=== PATIENT | female | born 1970 | race Caucasian/White ===

== ENCOUNTER 2023-06-26 22:14 | Inpatient (IN) | payer SELFPAY ==
[~2023-06-26] VITALS: Ht 149.9 cm; Wt 49.0 kg
[2023-06-26] MEDS: SODIUM CHLORIDE 0.9% 1,000 ML IV ONE (23:11)
[2023-06-26 23:21] LABS: BASOPHILS % 0.2 % (0.0-2.0); EOSINOPHILS % 0.5 % (0.0-5.0); HEMATOCRIT. 41.4 % (36.0-48.0); HEMOGLOBIN. 13.8 g/dL (12.0-16.0); LYMPHOCYTES % 8.5 % (20.0-50.0); MEAN CORPUSCULAR HEMOGLOBIN 30.1 pg (28.0-32.0); MEAN CORPUSCULAR HGB CONC 33.3 g/dL (31.0-37.0); MEAN CORPUSCULAR VOLUME 90.5 fL (81.0-99.0); MEAN PLATELET VOLUME 7.2 fl (7.4-10.4); MONOCYTES % 5.7 % (2.0-8.0); NEUTROPHILS % 85.1 % (40.0-76.0); PLATELET 212 x1000/uL (130-400); RED BLOOD CELL COUNT 4.58 mill/uL (4.2-5.4); RED CELL DISTRIBUTION WIDTH 12.9 % (11.6-14.6); WHITE BLOOD COUNT 21.9 x1000/uL (4.5-11.0)
[2023-06-26 23:41] LABS: ALANINE AMINOTRANSFERASE 60 IU/L (10-49); ALBUMIN 4.7 g/dL (3.2-4.8); ASPARTATE AMINOTRANSFERASE 91 IU/L (<34); BILIRUBIN TOTAL 0.5 mg/dL (0.1-1.0); CARBON DIOXIDE 24 mEq/L (21-32); CHLORIDE 109 mEq/L (98-107); CREATININE 0.9 mg/dL (0.6-1.0); GLUCOSE 118 mg/dL (70-105); POTASSIUM 3.2 mEq/L (3.5-5.1); PROTEIN TOTAL 7.9 g/dL (6.0-8.3); SODIUM 142 mEq/L (136-145); UREA NITROGEN BLOOD 20 mg/dL (9-23)
[2023-06-26] MEDS: TETANUS, DIPHTHERIA, PERTUSSIS VAC/PF 0.5ML (>10YR OLD) IM ONE (23:45)
[2023-06-26] MEDS: ACETAMINOPHEN 325MG TABLET PO ONE (23:45)
[2023-06-26 23:49] LABS: ETHANOL BLOOD < 10 mg/dL (<10)
[2023-06-26 23:50] LABS: TROPONIN I HIGH SENSITIVITY 485 ng/L (3.0-34)
[2023-06-27] MEDS: LIDOCAINE HCL/PF 1% 10 MG/ML 5ML VIAL INFIL ONE ×2 (00:40→00:47)
[2023-06-27] MEDS: BACITRACIN ZINC OINT UDPKT TOP ONE (00:40)
[2023-06-27] MEDS ORDERED: ACETAMINOPHEN 325MG TABLET PO PRN (01:45)
[2023-06-27] MEDS ORDERED: DOCUSATE SODIUM 100MG CAPSULE PO PRN (01:45)
[2023-06-27] MEDS ORDERED: MAGNESIUM/ALUMINUM HYDROXIDE/SIMETHICONE 30ML UDC PO PRN (01:45)
[2023-06-27] MEDS ORDERED: GUAIFENESIN 200MG/10ML SUGAR FREE UDC PO PRN (01:45)
[2023-06-27] MEDS ORDERED: ONDANSETRON HCL 4MG/2ML INJ IV PRN (01:45)
[2023-06-27] MEDS ORDERED: KETOROLAC 15MG/ML VIAL IV PRN (01:45)
[2023-06-27] MEDS ORDERED: CLONIDINE 0.1MG TABLET PO PRN (01:45)
[2023-06-27] MEDS ORDERED: IPRATROPIUM/ALBUTEROL 0.5-3(2.5)MG/3ML NEB HHN PRN (01:45)
[2023-06-27] MEDS: ENOXAPARIN 80MG/0.8ML SYR SUBCUT NR (02:17)
[2023-06-27] MEDS: ASPIRIN 325MG EC TABLET PO NR (02:17)
[2023-06-27] MEDS: FAMOTIDINE 20MG/2ML VIAL IV NR (02:45)
[2023-06-27] MEDS: DEXT 5%/0.9% NACL 1,000 ML IV ONE (02:46)
[2023-06-27] MEDS: POTASSIUM CHLORIDE 20MEQ TABLET SR PO NR (02:46)
[2023-06-27 03:29] LABS: TROPONIN I HIGH SENSITIVITY 5120 ng/L (3.0-34)
[2023-06-27 05:15] VITALS: BP 119/75; PULSE 107; RESP 20; TEMP 97.8
[2023-06-27 07:33] LABS: CREATINE KINASE MB FRACTION 18.4 ng/mL (0.5-3.6)
[2023-06-27 07:48] VITALS: BP 120/82; PULSE 101; RESP 18; TEMP 98.6
[2023-06-27 08:02] LABS: CLARITY URINE CLEAR (CLEAR); COLOR URINE YELLOW (YELLOW); GLUCOSE URINE TRACE (NEGATIVE); KETONES URINE NEGATIVE (NEGATIVE); LEUKOCYTE ESTERASE URINE NEGATIVE (NEGATIVE); NITRITE URINE NEGATIVE (NEGATIVE); OCCULT BLOOD URINE NEGATIVE (NEGATIVE); PH URINE 5.5 (4.5-8.0); PROTEIN URINE 1+ (NEGATIVE); SPECIFIC GRAVITY URINE 1.023 (1.005-1.030); UROBILINOGEN URINE 0.2 E.U./dL (0.2-1.0)
[2023-06-27 08:20] LABS: *AMPHETAMINES SCREEN URINE NEGATIVE (NEGATIVE); *BARBITURATES SCREEN URINE NEGATIVE (NEGATIVE); *BENZODIAZEPINES SCREEN URINE NEGATIVE (NEGATIVE); *COCAINE SCREEN URINE NEGATIVE (NEGATIVE); CANNABINOID URINE SCREEN NEGATIVE (NEGATIVE); ECSTASY MDMA SCREEN URINE NEGATIVE (NEGATIVE); METHADONE URINE SCREEN Neg (NEGATIVE); OPIATES URINE SCREEN NEGATIVE (NEGATIVE); PHENCYCLIDINE URINE SCREEN NEGATIVE (NEGATIVE)
[2023-06-27 08:35] LABS: D-DIMER 19.11 mg/L FEU (<0.50); PROTHROMBIN TIME 11.4 sec (9.6-11.0)
[2023-06-27 09:07] LABS: SQUAMOUS EPITHELIAL CELL URINE 1+ /lpf (RARE/1+)
[2023-06-27 09:08] LABS: BACTERIA URINE TRACE
[2023-06-27 09:09] LABS: RBC URINE NONE SEEN /hpf (0-2); WBC URINE 0-2 /hpf (0-2)
[2023-06-27] MEDS: ENOXAPARIN 60MG/0.6ML SYR SUBCUT SCH (09:40)
[2023-06-27] MEDS ORDERED: IOHEXOL-350 100 ML BOTTLE ONE (10:42)
[2023-06-27] MEDS: ACETAMINOPHEN 325MG TABLET PO PRN (10:57)
[2023-06-27 11:39] VITALS: BP 106/85; PULSE 94; RESP 18; TEMP 98.4
[2023-06-27 16:29] VITALS: BP 115/85; PULSE 95; RESP 20; TEMP 98.6
[2023-06-27 18:36] LABS: CREATINE KINASE MB FRACTION 13.1 ng/mL (0.5-3.6)
[2023-06-27 20:00] VITALS: BP_SYST 106; BP_SYST 98; BP_DIAS 73; PULSE 97; RESP 18; TEMP 97.6
[2023-06-27 20:40] LABS: CREATINE KINASE MB FRACTION 11.3 ng/mL (0.5-3.6)
[2023-06-28] VITALS (28 sets, daily range): BP systolic 87–137; BP diastolic 57–89; PULSE 75–101; RESP 12–30; TEMP 98.2–99.2
[2023-06-28 06:58] LABS: BASOPHILS % 0.4 % (0.0-2.0); EOSINOPHILS % 1.1 % (0.0-5.0); HEMATOCRIT. 37.5 % (36.0-48.0); HEMOGLOBIN. 12.5 g/dL (12.0-16.0); LYMPHOCYTES % 18.4 % (20.0-50.0); MEAN CORPUSCULAR HEMOGLOBIN 29.7 pg (28.0-32.0); MEAN CORPUSCULAR HGB CONC 33.2 g/dL (31.0-37.0); MEAN CORPUSCULAR VOLUME 89.2 fL (81.0-99.0); MEAN PLATELET VOLUME 7.8 fl (7.4-10.4); MONOCYTES % 7.6 % (2.0-8.0); NEUTROPHILS % 72.5 % (40.0-76.0); PLATELET 181 x1000/uL (130-400); RED CELL DISTRIBUTION WIDTH 12.8 % (11.6-14.6); WHITE BLOOD COUNT 12.6 x1000/uL (4.5-11.0)
[2023-06-28 07:29] LABS: ALANINE AMINOTRANSFERASE 46 IU/L (10-49); ALBUMIN 4.1 g/dL (3.2-4.8); ASPARTATE AMINOTRANSFERASE 42 IU/L (<34); BILIRUBIN TOTAL 0.9 mg/dL (0.1-1.0); CALCIUM 8.8 mg/dL (8.7-10.4); CARBON DIOXIDE 25 mEq/L (21-32); CHLORIDE 106 mEq/L (98-107); CHOLESTEROL 203 mg/dL (<200); CREATININE 0.6 mg/dL (0.6-1.0); GLUCOSE 98 mg/dL (70-105); HDL CHOLESTEROL 59 mg/dL (>65); LDL CHOLESTEROL 124 mg/dL (5-100); PHOSPHORUS 2.6 mg/dL (2.5-4.9); POTASSIUM 3.8 mEq/L (3.5-5.1); SODIUM 139 mEq/L (136-145); THYROID STIMULATING HORMONE 0.82 uIU/mL (0.55-4.78); TRIGLYCERIDE 148 mg/dL (0-150); UREA NITROGEN BLOOD 8 mg/dL (9-23)
[2023-06-28] MEDS ORDERED: IODIXANOL 320MG/ML 100 ML BOTTLE IV ONE (14:45)
[2023-06-28] MEDS ORDERED: FENTANYL CITRATE/PF 50MCG/ML 2ML VIAL ONE (14:46)
[2023-06-28] MEDS ORDERED: LIDOCAINE HCL 1% 20ML VIAL (Pyxis) INJ ONE (14:46)
[2023-06-28] MEDS ORDERED: MIDAZOLAM HCL 2 MG/2 ML VIAL ONE ×2 (14:46→17:34)
[2023-06-28] MEDS ORDERED: HEPARIN 1000 UNITS/ML 10ML ONE (14:46)
[2023-06-28] MEDS ORDERED: PROTAMINE SULFATE 10MG/ML VIAL 25ML IV ONE (16:16)
[2023-06-28] MEDS ORDERED: MIDAZOLAM HCL 5 MG/5 ML VIAL ONE (16:16)
[2023-06-28] MEDS ORDERED: PROPOFOL 10MG/ML 100ML 100 ML IV ONE (16:32)
[2023-06-28 17:35] LABS: HEMATOCRIT 34.5 % (36.0-48.0); HEMOGLOBIN 11.3 g/dL (12.0-16.0)
[2023-06-28] MEDS: FENTANYL 2500MCG/250ML PMX 250 ML IV ONE (18:55)
[2023-06-28] MEDS: PROPOFOL 10MG/ML 100ML 100 ML IV PRN (19:02)
[2023-06-28 19:34] LABS: BG BASE EXCESS -0.5 mmol/L (-2.0-2.0); BG CARBOXYHEMOGLOBIN 0.3 % (0.5-1.5); BG DEOXYHEMOGLOBIN 0.8 % (0.0-5.0); BG FRACTION INSPIRED OXYGEN 100; BG METHEMOGLOBIN 0.4 % (0.0-1.5); BG OXYGEN SATURATION 99.2 % (92.0-98.5); BG OXYHEMOGLOBIN 98.5 % (94.0-97.0); BG PCO2 38.8 mmHg (35.0-45.0); BG PH 7.409 (7.350-7.450); BG PO2 276.5 mmHg (75.0-100.0); BG SAMPLE SITE ALINE; BG TOTAL HEMOGLOBIN 12.3 g/dL (12.0-18.0); BG VENT MODE VENT - AC
[2023-06-28] MEDS: ATORVASTATIN CALCIUM 40MG TABLET PO SCH (20:02)
[2023-06-28 23:57] LABS: HEMOGLOBIN 13.1 g/dL (12.0-16.0); MEAN CORPUSCULAR HEMOGLOBIN 30.2 pg (28.0-32.0); MEAN CORPUSCULAR HGB CONC 32.7 g/dL (31.0-37.0); MEAN CORPUSCULAR VOLUME 92.3 fL (81.0-99.0); PLATELET 167 x1000/uL (130-400); RED BLOOD CELL COUNT 4.33 mill/uL (4.2-5.4); RED CELL DISTRIBUTION WIDTH 13.2 % (11.6-14.6); WHITE BLOOD COUNT 16.9 x1000/uL (4.5-11.0)
[2023-06-29] VITALS (91 sets, daily range): BP systolic 83–132; BP diastolic 43–84; PULSE 80–106; RESP 13–24; TEMP 98–99.5
[2023-06-29 04:32] LABS: BASOPHILS % 0.5 % (0.0-2.0); EOSINOPHILS % 3.2 % (0.0-5.0); HEMATOCRIT. 35.9 % (36.0-48.0); HEMOGLOBIN. 12.1 g/dL (12.0-16.0); LYMPHOCYTES % 18.9 % (20.0-50.0); MEAN CORPUSCULAR HEMOGLOBIN 30.7 pg (28.0-32.0); MEAN CORPUSCULAR HGB CONC 33.7 g/dL (31.0-37.0); MEAN PLATELET VOLUME 8.1 fl (7.4-10.4); MONOCYTES % 8.9 % (2.0-8.0); NEUTROPHILS % 68.5 % (40.0-76.0); PLATELET 149 x1000/uL (130-400); RED BLOOD CELL COUNT 3.94 mill/uL (4.2-5.4); RED CELL DISTRIBUTION WIDTH 12.8 % (11.6-14.6); WHITE BLOOD COUNT 14.8 x1000/uL (4.5-11.0)
[2023-06-29 04:45] LABS: CALCIUM 7.9 mg/dL (8.7-10.4); CARBON DIOXIDE 26 mEq/L (21-32); CHLORIDE 107 mEq/L (98-107); CREATININE 0.7 mg/dL (0.6-1.0); GLUCOSE 118 mg/dL (70-105); PHOSPHORUS 3.3 mg/dL (2.5-4.9); POTASSIUM 3.4 mEq/L (3.5-5.1); SODIUM 140 mEq/L (136-145); TRIGLYCERIDE 157 mg/dL (0-150); UREA NITROGEN BLOOD 12 mg/dL (9-23)
[2023-06-29] MEDS: NOREPINEPHRINE 8MG/250ML PMX 250 ML IV PRN (07:06)
[2023-06-29] MEDS: MAGNESIUM 2 G PREMIX 50 ML IV NR (09:32)
[2023-06-29] MEDS ORDERED: RACEPINEPHRINE 2.25% 0.5ML NEB VIAL HHN SCH (10:30)
[2023-06-29] MEDS ORDERED: RACEPINEPHRINE 2.25% 0.5ML NEB VIAL HHN PRN (10:30)
[2023-06-29] MEDS: KCL 20MEQ/100ML PREMIX 100 ML IV NR (10:39)
[2023-06-29] MEDS: SODIUM BICARBONATE 150 MEQ in DEXTROSE 5% WATER 1,000 ML IV PRN (11:05)
[2023-06-29 14:48] LABS: BG BASE EXCESS 0.8 mmol/L (-2.0-2.0); BG CARBOXYHEMOGLOBIN 0.2 % (0.5-1.5); BG DEOXYHEMOGLOBIN 2.6 % (0.0-5.0); BG FRACTION INSPIRED OXYGEN 40; BG HCO3 ACT 25.4 mmol/L (22.0-26.0); BG METHEMOGLOBIN 0.3 % (0.0-1.5); BG OXYGEN SATURATION 97.4 % (92.0-98.5); BG OXYHEMOGLOBIN 96.9 % (94.0-97.0); BG PCO2 40.3 mmHg (35.0-45.0); BG PH 7.417 (7.350-7.450); BG PO2 93.7 mmHg (75.0-100.0); BG SAMPLE SITE RIGHT RADIAL; BG TOTAL HEMOGLOBIN 12.7 g/dL (12.0-18.0); BG VENT MODE VENT - CPAP
[2023-06-29] MEDS: SODIUM BICARBONATE 150 MEQ in DEXTROSE 5% WATER 1,000 ML IV SCH (14:51)
[2023-06-29] MEDS: DEXT 5%/0.45% NACL 1000ML 1,000 ML IV SCH (22:02)
[2023-06-30] VITALS (80 sets, daily range): BP systolic 78–121; BP diastolic 66–87; PULSE 76–95; RESP 14–28; TEMP 97.8–98.6
[2023-06-30 00:04] LABS: HEMATOCRIT 33.8 % (36.0-48.0); HEMOGLOBIN 11.4 g/dL (12.0-16.0); MEAN CORPUSCULAR HEMOGLOBIN 30.8 pg (28.0-32.0); MEAN CORPUSCULAR HGB CONC 33.6 g/dL (31.0-37.0); MEAN CORPUSCULAR VOLUME 91.6 fL (81.0-99.0); PLATELET 149 x1000/uL (130-400); RED BLOOD CELL COUNT 3.69 mill/uL (4.2-5.4); WHITE BLOOD COUNT 13.7 x1000/uL (4.5-11.0)
[2023-06-30 05:14] LABS: BASOPHILS % 0.3 % (0.0-2.0); EOSINOPHILS % 4.7 % (0.0-5.0); HEMOGLOBIN. 11.5 g/dL (12.0-16.0); LYMPHOCYTES % 15.2 % (20.0-50.0); MEAN CORPUSCULAR HEMOGLOBIN 31.4 pg (28.0-32.0); MEAN CORPUSCULAR HGB CONC 33.8 g/dL (31.0-37.0); MEAN CORPUSCULAR VOLUME 92.9 fL (81.0-99.0); MEAN PLATELET VOLUME 7.8 fl (7.4-10.4); MONOCYTES % 7.9 % (2.0-8.0); NEUTROPHILS % 71.9 % (40.0-76.0); PLATELET 139 x1000/uL (130-400); RED BLOOD CELL COUNT 3.66 mill/uL (4.2-5.4); RED CELL DISTRIBUTION WIDTH 12.9 % (11.6-14.6); WHITE BLOOD COUNT 10.5 x1000/uL (4.5-11.0)
[2023-06-30 05:28] LABS: CALCIUM 7.9 mg/dL (8.7-10.4); CARBON DIOXIDE 28 mEq/L (21-32); CHLORIDE 105 mEq/L (98-107); GLUCOSE 105 mg/dL (70-105); PHOSPHORUS 2.3 mg/dL (2.5-4.9); POTASSIUM 3.4 mEq/L (3.5-5.1); SODIUM 138 mEq/L (136-145); UREA NITROGEN BLOOD 6 mg/dL (9-23)
[2023-06-30 05:47] LABS: CREATININE 0.4 mg/dL (0.6-1.0)
[2023-06-30] MEDS: MAGNESIUM 2 G PREMIX 50 ML IV ONE (06:50)
[2023-06-30] MEDS: SODIUM PHOSPHATE 15 MMOL in DEXT 5% WATER 245 ML IV ONE (08:52)
[2023-06-30] MEDS: KCL 20MEQ/100ML PREMIX 100 ML IV SCH (10:06)
[2023-06-30] MEDS ORDERED: HEPARIN 25,000 UNITS PREMIX 250 ML IV PRN (10:30)
[2023-06-30] MEDS ORDERED: HEPARIN 5000 UNITS/ML VIAL IV PRN ×2 (10:30)
[2023-06-30 11:13] LABS: BASOPHILS % 0.3 % (0.0-2.0); EOSINOPHILS % 5.3 % (0.0-5.0); HEMATOCRIT. 32.3 % (36.0-48.0); HEMOGLOBIN. 11.1 g/dL (12.0-16.0); LYMPHOCYTES % 11.7 % (20.0-50.0); MEAN CORPUSCULAR HEMOGLOBIN 30.8 pg (28.0-32.0); MEAN CORPUSCULAR HGB CONC 34.3 g/dL (31.0-37.0); MEAN CORPUSCULAR VOLUME 89.7 fL (81.0-99.0); MEAN PLATELET VOLUME 7.5 fl (7.4-10.4); MONOCYTES % 8.3 % (2.0-8.0); NEUTROPHILS % 74.4 % (40.0-76.0); PLATELET 147 x1000/uL (130-400); RED CELL DISTRIBUTION WIDTH 13.1 % (11.6-14.6); WHITE BLOOD COUNT 10.8 x1000/uL (4.5-11.0)
[2023-06-30 11:30] LABS: PARTIAL THROMBOPLASTIN TIME 24.1 sec (23.4-31.0); PROTHROMBIN TIME 10.8 sec (9.6-11.0)
[2023-06-30] MEDS: HEPARIN 80 UNITS/KG BOLUS IV NR (13:05)
[2023-06-30] MEDS: HEPARIN 25,000 UNITS PREMIX 250 ML IV SCH (13:11)
[2023-06-30] MEDS ORDERED: HEPARIN BOLUS PRN aPTT 37-44 IV (19:00)
[2023-07-01] VITALS (40 sets, daily range): BP systolic 99–111; BP diastolic 75–82; PULSE 70–92; RESP 12–26; TEMP 97.9–98.7
[2023-07-01 06:03] LABS: BASOPHILS % 0.3 % (0.0-2.0); EOSINOPHILS % 5.7 % (0.0-5.0); HEMATOCRIT. 34.4 % (36.0-48.0); HEMOGLOBIN. 11.6 g/dL (12.0-16.0); LYMPHOCYTES % 20.3 % (20.0-50.0); MEAN CORPUSCULAR HGB CONC 33.8 g/dL (31.0-37.0); MEAN CORPUSCULAR VOLUME 91.9 fL (81.0-99.0); MEAN PLATELET VOLUME 7.9 fl (7.4-10.4); MONOCYTES % 7.6 % (2.0-8.0); NEUTROPHILS % 66.1 % (40.0-76.0); PLATELET 193 x1000/uL (130-400); RED BLOOD CELL COUNT 3.74 mill/uL (4.2-5.4); RED CELL DISTRIBUTION WIDTH 13.1 % (11.6-14.6); WHITE BLOOD COUNT 9.4 x1000/uL (4.5-11.0)
[2023-07-01 07:23] LABS: CALCIUM 8.6 mg/dL (8.7-10.4); CARBON DIOXIDE 28 mEq/L (21-32); CHLORIDE 107 mEq/L (98-107); CREATININE 0.5 mg/dL (0.6-1.0); GLUCOSE 89 mg/dL (70-105); PHOSPHORUS 2.9 mg/dL (2.5-4.9); SODIUM 139 mEq/L (136-145); UREA NITROGEN BLOOD 6 mg/dL (9-23)
[2023-07-01] MEDS ORDERED: IOHEXOL-350 100 ML BOTTLE ONE (14:11)
[2023-07-01] MEDS: FENTANYL CITRATE/PF 50MCG/ML 2ML VIAL IV NR (14:30)
[2023-07-02] VITALS (17 sets, daily range): BP systolic 82–120; BP diastolic 55–86; PULSE 73–91; RESP 15–22; TEMP 98–99.1
[2023-07-02] MEDS: HEPARIN BOLUS PRN aPTT <36 IV (06:33)
[2023-07-02] MEDS: APIXABAN 5 MG TABLET PO SCH (09:26)
[2023-07-02] MEDS: MIDODRINE HCL 5MG TABLET PO PRN (18:47)
[2023-07-03] VITALS (7 sets, daily range): BP systolic 80–100; BP diastolic 65–78; PULSE 73–96; RESP 16–23; TEMP 98.3–99.3
[2023-07-03 09:00] LABS: BASOPHILS % 0.7 % (0.0-2.0); EOSINOPHILS % 3.4 % (0.0-5.0); HEMATOCRIT. 39.4 % (36.0-48.0); HEMOGLOBIN. 13.3 g/dL (12.0-16.0); MEAN CORPUSCULAR HEMOGLOBIN 30.5 pg (28.0-32.0); MEAN CORPUSCULAR HGB CONC 33.7 g/dL (31.0-37.0); MEAN CORPUSCULAR VOLUME 90.3 fL (81.0-99.0); MEAN PLATELET VOLUME 7.6 fl (7.4-10.4); MONOCYTES % 9.3 % (2.0-8.0); NEUTROPHILS % 68.6 % (40.0-76.0); PLATELET 268 x1000/uL (130-400); RED BLOOD CELL COUNT 4.36 mill/uL (4.2-5.4); WHITE BLOOD COUNT 9.8 x1000/uL (4.5-11.0)
[2023-07-03 09:10] LABS: PARTIAL THROMBOPLASTIN TIME 25.4 sec (23.4-31.0); PROTHROMBIN TIME 11.4 sec (9.6-11.0)
[2023-07-03 09:47] LABS: ALANINE AMINOTRANSFERASE 43 IU/L (10-49); ALBUMIN 4.5 g/dL (3.2-4.8); ASPARTATE AMINOTRANSFERASE 47 IU/L (<34); BILIRUBIN TOTAL 1.4 mg/dL (0.1-1.0); CALCIUM 9.2 mg/dL (8.7-10.4); CARBON DIOXIDE 27 mEq/L (21-32); CHLORIDE 102 mEq/L (98-107); CREATININE 0.6 mg/dL (0.6-1.0); GLUCOSE 101 mg/dL (70-105); PHOSPHORUS 3.2 mg/dL (2.5-4.9); POTASSIUM 3.7 mEq/L (3.5-5.1); PROTEIN TOTAL 7.9 g/dL (6.0-8.3); SODIUM 137 mEq/L (136-145); UREA NITROGEN BLOOD 14 mg/dL (9-23)
[2023-07-04] VITALS: PULSE 89; RESP 22
[2023-07-04 04:00] VITALS: BP 110/79; PULSE 82; RESP 16; TEMP 98.3
[2023-07-04 08:00] VITALS: BP 104/77; PULSE 83; RESP 16; TEMP 98
[2023-07-04 12:00] VITALS: BP 101/75; PULSE 76; RESP 20; TEMP 98.2
[2023-07-04 13:31] VITALS: BP 104/77; PULSE 83; TEMP 98; O2SAT 100
[2023-07-04 13:36] VITALS: BP 104/77; PULSE 83; TEMP 98; O2SAT 100
[2023-07-09] MEDS ORDERED: APIXABAN 5 MG TABLET PO SCH (09:00)
== END 2023-07-04 15:00 | disposition home or self-care (01) | DRG 134 ==
LOC: ER 22:14 → 7WST 06-27 02:47 → CVICU 06-28 18:31 → 3WST 07-02 17:31
PROVIDERS: ADMIT Internal Medicine; ATTEND Internal Medicine
PROC: 4A023N6 Measurement of Cardiac Sampling and Pressure, Right Heart, Percutaneous Approach (ICD-10-PCS; principal; 2023-06-28)
PROC: 5A1945Z Respiratory Ventilation, 24-96 Consecutive Hours (ICD-10-PCS; 2023-06-28)
PROC: B31TYZZ Fluoroscopy of Left Pulmonary Artery using Other Contrast (ICD-10-PCS; 2023-06-28)
PROC: 0BH17EZ Insertion of Endotracheal Airway into Trachea, Via Natural or Artificial Opening (ICD-10-PCS; 2023-06-28)
PROC: 04HY32Z Insertion of Monitoring Device into Lower Artery, Percutaneous Approach (ICD-10-PCS; 2023-06-28)
PROC: 30233N1 Transfusion of Nonautologous Red Blood Cells into Peripheral Vein, Percutaneous Approach (ICD-10-PCS; 2023-06-28)
DX: I26.02 Saddle embolus of pulmonary artery with acute cor pulmonale (principal); J96.01 Acute respiratory failure with hypoxia; I21.A1 Myocardial infarction type 2; D72.829 Elevated white blood cell count, unspecified; E86.0 Dehydration; R55 Syncope and collapse; E87.6 Hypokalemia; E83.42 Hypomagnesemia; R74.01 Elevation of levels of liver transaminase levels; G90.8 Other disorders of autonomic nervous system
CPT/HCPCS: 31500; 36415; 36600; 71045; 71275; 74018; 80048; 80053; 80061; 80305; 80320; 81003; 82375; 82550; 82553; 82805; 83036; 83605; 83735; 83880; 84100; 84439; 84443; 84478; 84484; 85014; 85018; 85025; 85027; 85347; 85379; 86850; 86900; 86920; 87070; 90715; 93005; 93306; 93308; 93880; 93971; 94002; 94003; 94640; 97116; 97162; 97164; 97166; 97530; 99285; C1726; J1644; J1650; J2250; J2704; J2720; J3010; J3475; J3480; J3490; J7030; J7060; J7070; P9016; Q9967; G0480